=== PATIENT | female | born 1965 | race African-American/Black ===

== ENCOUNTER 2019-01-20 13:58 | Emergency (ER) | payer OTHER ==
[~2019-01-20] VITALS: Ht 170.2 cm; Wt 95.3 kg
[2019-01-20] MEDS ORDERED: SODIUM CHLORIDE 0.9% 1000 ML BAG IV STA (15:26)
--- NOTE | 2019-01-20 15:33 | Diagnostic Imaging Report ---
EXAMINATION: PA and lateral views of the chest. COMPARISON: None CLINICAL HISTORY: Short of breath, cough DISCUSSION: Lines/tubes: None. Lungs: The lungs are well inflated and clear. No pneumonia or pulmonary edema. Pleura: No pleural effusion or pneumothorax. Heart and mediastinum: The cardiomediastinal silhouette is normal. Aortic vascular calcifications. Bones and soft tissues: No acute bony abnormalities. IMPRESSION: No acute cardiopulmonary abnormalities. Signed by: Dr. Oswaldo Curtis M.D. on 01/20/2019 3:30 PM
[2019-01-20] MEDS ORDERED: SODIUM CHLORIDE 0.9% 1000ML 1,000 ML ONE (15:36)
--- NOTE | 2019-01-20 15:42 | Diagnostic Imaging Report ---
History: Dizziness for 2 days Comparison studies: None Technique: Axial images were obtained from the skull base to the vertex. Coronal and sagittal reconstructions obtained from the axial data. Dose modulation, iterative reconstruction, and/or weight based adjustment of the mA/kV was utilized to reduce the radiation dose to as low as reasonably achievable. Findings: Scalp/skull: No abnormalities. No fractures, blastic or lytic lesions. Extra-axial spaces: No masses. No fluid collections. Brain sulci: Appropriate for age. Ventricles: Normal in size and configuration. No hydrocephalus. Parenchyma: No abnormal densities. No masses, hemorrhage, acute or chronic cortical vascular insults. Sellar/suprasellar region: No abnormalities Craniocervical junction: Patent foramen magnum. No Chiari one malformation. IMPRESSION: No abnormalities . Signed by: DR Angel Raphael M.D. on 01/20/2019 3:39 PM
[2019-01-20 16:32] VITALS: BP 150/79
== END 2019-01-20 16:36 | disposition home or self-care (01) ==
LOC: FSED 13:58
DX: R42 Dizziness and giddiness (principal); J02.9 Acute pharyngitis, unspecified; E86.9 Volume depletion, unspecified; E86.1 Hypovolemia; I10 Essential (primary) hypertension
CPT/HCPCS: 70450; 71046; 80048; 80076; 81003; 82553; 84484; 85025; 93005; 99284; J7030